=== PATIENT | female | born 1975 ===

== ENCOUNTER 2022-02-10 02:49 | Inpatient (IN) | payer OTHER ==
[2022-02-10 04:14] LABS: Basophils # (Auto) 0.1 K/mm3 (0.0-0.1); Basophils % (Auto) 0.4 % (0.0-1.8); Eosinophils # (Auto) 0.3 K/mm3 (0.0-0.4); Eosinophils % (Auto) 2.3 % (0.0-4.3); Hematocrit 38.8 % (30.3-42.9); Hemoglobin 12.9 gm/dl (10.1-14.3); Lymphocytes # (Auto) 2.9 K/mm3 (1.2-5.4); Lymphocytes % (Auto) 22.7 % (13.4-35.0); Mean Corpuscular HGB Conc 33 % (30-34); Mean Corpuscular Volume 92 fl (79-97); Monocytes # (Auto) 0.9 K/mm3 (0.0-0.8); Monocytes % (Auto) 7.4 % (0.0-7.3); Platelet Count 243 K/mm3 (140-440); Red Blood Count 4.24 M/mm3 (3.65-5.03); Red Cell Distribution Width 13.5 % (13.2-15.2)
[2022-02-10 04:25] LABS: Alanine Aminotransferase 13 units/L (7-56); Albumin 3.9 g/dL (3.9-5); Blood Urea Nitrogen 10 mg/dL (7-17); Calcium 9.2 mg/dL (8.4-10.2); Hemolysis Index 6
[2022-02-10 04:27] LABS: BUN/Creatinine Ratio 20
[2022-02-10] MEDS ORDERED: SODIUM CHLORIDE 0.9% 1000 ML 1,000 ML IV ONE (04:54)
[2022-02-10] MEDS ORDERED: ONDANSETRON 4 MG/2 ML INJ IV ONE ×2 (04:54→06:57)
[2022-02-10] MEDS ORDERED: MORPHINE 4 MG/1 ML INJ IV ONE ×3 (04:54→06:57)
--- NOTE | 2022-02-10 05:59 | Ultrasound Report ---
ULTRASOUND ABDOMEN, LIMITED INDICATION / CLINICAL INFORMATION: pain. COMPARISON: CTA chest 12/30/2020 TECHNIQUE: Using transcutaneous protocol multiple grayscale and color Doppler images were captured an d stored of the pancreas, liver, aorta, inferior vena cava, gallbladder, common bile duct, and right kidney. FINDINGS: PANCREAS: Visualized portion shows no significant abnormality. AORTA: Longitudinal images of the aorta demonstrate no significant abnormality. IVC: Longitudinal images of the inferior vena cava demonstrate no significant abnormality. LIVER: Right hepatic lobe measures 18.1 cm as measured. Diffuse increase in hepatic echotexture is pr esent. Normal hepatopedal blood flow in the main portal vein. GALLBLADDER: Gallbladder wall is normal measuring 2.2 mm. No stones. No pericholecystic fluid. BILE DUCTS: No significant abnormality. Common bile duct measures 3.3 mm. RIGHT KIDNEY: No acute findings are suggested to involve the right kidney. FREE FLUID: None. ADDITIONAL FINDINGS: None. IMPRESSION: 1. Mild hepatomegaly with hyperechoic appearance of the liver compatible with hepatic steatosis. Signer Name: Tao Hawthorne II, MD Signed: 02/10/2022 5:54 AM Workstation Name: [id number]
--- NOTE | 2022-02-10 06:34 | Cat Scan Report ---
CT ABDOMEN AND PELVIS WITH CONTRAST INDICATION / CLINICAL INFORMATION: Abdominal Pain. TECHNIQUE: Axial CT images were obtained through the abdomen and pelvis after 100 cc Omnipaque [address] scans at this location are performed using CT dose reduction for ALARA by means of automated exposure control. COMPARISON: CTA chest 12/30/2020 FINDINGS: LOWER CHEST: No significant abnormality of the imaged chest. LIVER: No focal lesion. No acute findings. GALLBLADDER / BILE DUCTS: No significant abnormality. Biliary ducts grossly unremarkable. SPLEEN: No significant abnormality. PANCREAS: Pancreas is abnormal in appearance with an expansile appearance of the pancreatic head and mixed regions of hypoattenuation versus diminished enhancement involving the mid body and head. Pancr eatic duct not well visualized. No pancreatic atrophy. Mild peripancreatic fat stranding within the p ancreaticoduodenal groove. ADRENALS: No significant abnormality. KIDNEYS/URETERS: No stones or hydronephrosis. No solid renal lesion. STOMACH / DUODENUM / SMALL BOWEL: The stomach, duodenum, and small bowel demonstrate no significant a bnormality. No specific abnormality of the mesentery demonstrated. COLON: No significant abnormality. APPENDIX: No significant abnormality. PERITONEUM: No free air or free fluid are present within the abdomen or pelvis. LYMPH NODES: Peripancreatic lymph nodes measure 7-8 mm in short axis. AORTA / ARTERIES: No evidence of vascular encasement. IVC / VEINS: No significant abnormality. URINARY BLADDER: No significant abnormality. REPRODUCTIVE ORGANS: No significant abnormality. SKELETAL SYSTEM: No significant abnormality. ADDITIONAL ABDOMINAL/PELVIC FINDINGS: None. IMPRESSION: 1. Acute pancreatitis is suggested, regions of diminished enhancement could reflect developing necros is, small hypoattenuating mass within the pancreatic head not entirely excluded. Correlation with ser um lipase recommended. 2. Borderline peripancreatic lymph nodes. Signer Name: Tao Hawthorne II, MD Signed: 02/10/2022 6:30 AM Workstation Name: [id number]
--- NOTE | 2022-02-10 07:09 | Event Note ---
Date: 02/10/22 Pt seen/evaluated by ER attending, Dr. Shanks. The pt was signed out to me on today, 02/10/22, at 06:28am pending result of the pt's CT scan of a/p. Please see pt's EHR for Dr. Shanks's direct provider note on the pt and his assessment of her. Labs reviewed. WBC 12.6. Remainder of labs are grossly unremarkable. He ordered a ultrasound of the patient's gallbladder which was negative. CT scan reviewed and results per reading radiologist demonstrates acute pancreatitis with regions of diminished enhancement which could reflect a developing necrosis. Borderline perihepatic lymph nodes. I reassessed the patient. She continues to have pain and reports nausea. She will be ordered for additional antiemetics and pain medication. Case reviewed via telephone with admitting hospitalist, Dr. Buchanan at 7:11 AM. Patient's care has been transferred to him for admission to the hospital service
[2022-02-10] MEDS ORDERED: HYDROmorphone 0.5 MG/0.5 ML INJ IV PRN (12:11)
[2022-02-10] MEDS ORDERED: MORPHINE 2 MG/1 ML INJ IV PRN (12:30)
[2022-02-10] MEDS: HYDROmorphone 1 MG/1 ML INJ IV PRN ×3 (12:43→20:01)
[2022-02-10] MEDS ORDERED: ONDANSETRON 4 MG/2 ML INJ IV PRN (13:00)
[2022-02-10] MEDS: HEPARIN 5,000 UNIT/1 ML VIAL SUB-Q SCH ×2 (13:22→22:49)
--- NOTE | 2022-02-10 13:53 | Electrocardiograph Report ---
[facility] Test Date: 2022-02-10 Test Time: 06:30:50 Pat Name: ABELARDO RUIZ Department: Room: A386 Gender: F Manager Paper: RIK : 1975 Requested By: DEBBIE SIERRA Order Number: [id number] Reading MD: Nori Kauffman Measurements Intervals Stanton Rate: 79 P: 42 NJ: 205 QRS: -12 QRSD: 81 T: 11 QT: 388 QTc: 444 Interpretive Statements Sinus rhythm Borderline prolonged NJ interval Left ventricular hypertrophy Compared to ECG 12/30/2020 00:14:02 No significant change Electronically Signed On 02-10-2022 13:52:50 EDT by Nori Kauffman
[2022-02-10] MEDS: FAMOTIDINE 20 MG/2 ML INJ IV SCH ×2 (14:27→22:49)
[2022-02-10] MEDS: D5W/0.9% NACL 1,000 ML IV SCH (16:48)
--- NOTE | 2022-02-10 21:42 | Emergency Department Report ---
ED General Adult HPI - General Chief complaint: Abdominal Pain Stated complaint: STOMACH/BACK PAIN PUI?: No Time Seen by Provider: 02/10/22 04:54 Source: patient Mode of arrival: Ambulatory Limitations: No Limitations - History of Present Illness Initial comments: GENERALIZED ABD PAIN AND BACK PAIN SINCE FATHERS DAY. DENIES N/V/D, -: Gradual, days(s) Location: abdomen Radiation: abdomen Severity scale (0 -10): 8 Quality: aching Consistency: constant Improves with: none Associated Symptoms: nausea/vomiting - Related Data Previous Rx's Medication Instructions Recorded Last Taken Type Albuterol Mdi (or & Nicu Only) 2 puff IH QID PRN #8.5 gram 01/01/21 Unknown Rx [ProAir HFA Inhaler] Apixaban [Eliquis] 5 mg PO Q12HR #60 tablet 01/01/21 Unknown Rx Ascorbic Acid [Vitamin C] 500 mg PO BID #10 tablet 01/01/21 Unknown Rx Metoprolol [Lopressor TAB] 25 mg PO BID #60 tablet 01/01/21 Unknown Rx Pantoprazole [Protonix TAB] 40 mg PO QDAC #30 tablet 01/01/21 Unknown Rx Zinc Sulfate 220 mg PO BID #10 capsule 01/01/21 Unknown Rx amLODIPine 10 mg PO DAILY #30 tablet 01/01/21 Unknown Rx guaiFENesin ER [Mucinex ER] 600 mg PO BID #10 tablet 01/01/21 Unknown Rx levoFLOXacin [Levaquin] 750 mg PO QDAY #2 tablet 01/02/21 Unknown Rx Allergies Allergy/AdvReac Type Severity Reaction Status Date / Time No Known Allergies Allergy Verified 10/15/21 09:21 ED Review of Systems ROS: Stated complaint: STOMACH/BACK PAIN Other details as noted in HPI Constitutional: denies: chills, fever Eyes: denies: eye pain, eye discharge, vision change ENT: denies: ear pain, throat pain Respiratory: denies: cough, shortness of breath, wheezing Cardiovascular: denies: chest pain, palpitations Endocrine: no symptoms reported Gastrointestinal: denies: abdominal pain, nausea, diarrhea Genitourinary: denies: urgency, dysuria, discharge Musculoskeletal: denies: back pain, joint swelling, arthralgia Skin: denies: rash, lesions Neurological: denies: headache, weakness, paresthesias Psychiatric: denies: anxiety, depression Hematological/Lymphatic: denies: easy bleeding, easy bruising ED Past Medical Hx - Past Medical History Hx Congestive Heart Failure: No Hx Diabetes: No Hx Asthma: Yes Hx COPD: No - Social History Smoking Status: Never Smoker - Medications Home Medications: Home Medications Medication Instructions Recorded Confirmed Last Taken Type Albuterol Mdi (or & Nicu Only) 2 puff IH QID PRN #8.5 gram 01/01/21 Unknown Rx [ProAir HFA Inhaler] Apixaban [Eliquis] 5 mg PO Q12HR #60 tablet 01/01/21 Unknown Rx Ascorbic Acid [Vitamin C] 500 mg PO BID #10 tablet 01/01/21 Unknown Rx Metoprolol [Lopressor TAB] 25 mg PO BID #60 tablet 01/01/21 Unknown Rx Pantoprazole [Protonix TAB] 40 mg PO QDAC #30 tablet 01/01/21 Unknown Rx Zinc Sulfate 220 mg PO BID #10 capsule 01/01/21 Unknown Rx amLODIPine 10 mg PO DAILY #30 tablet 01/01/21 Unknown Rx guaiFENesin ER [Mucinex ER] 600 mg PO BID #10 tablet 01/01/21 Unknown Rx levoFLOXacin [Levaquin] 750 mg PO QDAY #2 tablet 01/02/21 Unknown Rx ED Physical Exam - General Limitations: No Limitations General appearance: alert, in distress - Head Head exam: Present: atraumatic, normocephalic - Eye Eye exam: Present: normal appearance - ENT ENT exam: Present: mucous membranes moist - Neck Neck exam: Present: normal inspection - Respiratory Respiratory exam: Present: normal lung sounds bilaterally. Absent: respiratory distress - Cardiovascular Cardiovascular Exam: Present: regular rate, normal rhythm. Absent: systolic murmur, diastolic murmur, rubs, gallop - GI/Abdominal GI/Abdominal exam: Present: tenderness, rebound - Extremities Exam Extremities exam: Present: normal inspection - Back Exam Back exam: Present: normal inspection - Neurological Exam Neurological exam: Present: alert, oriented X3 - Psychiatric Psychiatric exam: Present: normal affect, normal mood - Skin Skin exam: Present: warm, dry, intact, normal color. Absent: rash ED Course Vital Signs 02/10/22 02/10/22 02/10/22 03:11 05:23 05:24 Temperature 98.3 F 98.0 F Pulse Rate 80 80 Respiratory 18 14 Rate Blood Pressure 148/98 Blood Pressure 178/80 [Right] O2 Sat by Pulse 98 98 98 Oximetry ED Medical Decision Making - Lab Data Result diagrams: 02/10/22 03:46 02/10/22 03:46 - EKG Data -: EKG Interpreted by Me EKG shows normal: sinus rhythm - EKG Data Interpretation: no acute changes, nonspecific ST-T wave isaias - Medical Decision Making work up showed elevated wbc , pain meds given and US negative CT scan ordered handed over to dr Harrison at [facility] for follow up on CT and disposition Critical care attestation.: If time is entered above; I have spent that time in minutes in the direct care of this critically ill patient, excluding procedure time. ED Disposition Clinical Impression: Acute pancreatitis, Acute abdominal pain Disposition: ADMITTED INPATIENT Is pt being admited?: Yes Does the pt Need Aspirin: No Condition: Fair
[2022-02-10] MEDS: ACETAMINOPHEN 325 MG TAB PO PRN (22:51)
--- NOTE | 2022-02-10 23:59 | History and Physical Report ---
History of Present Illness Date of examination: 02/10/22 Date of admission: 02/10/22 12:11 Chief complaint: Acute abdominal pain for 2 to 3 days History of present illness: 47-year-old -[place] female with history of hypertension obesity GERD and on anticoagulation for DVT comes in for increasing abdominal pain for the last 48 to 72 hours. Pain is epigastric region. Pain is intermittent in nature. Pain is sharp 8-10 on a scale of 1-10. Associated with nausea. Vomited couple times every day for the last 3 days. No fever or chills. Patient is vaccinated. Past History Past Medical History: hypertension, hyperlipidemia, other (DVT) Past Surgical History: Other Social history: lives with family, full code Family history: hypertension Medications and Allergies Allergies Allergy/AdvReac Type Severity Reaction Status Date / Time No Known Allergies Allergy Verified 10/15/21 09:21 Home Medications Medication Instructions Recorded Confirmed Last Taken Type Albuterol Mdi (or & Nicu Only) 2 puff IH QID PRN #8.5 gram 01/01/21 Unknown Rx [ProAir HFA Inhaler] Apixaban [Eliquis] 5 mg PO Q12HR #60 tablet 01/01/21 Unknown Rx Ascorbic Acid [Vitamin C] 500 mg PO BID #10 tablet 01/01/21 Unknown Rx Metoprolol [Lopressor TAB] 25 mg PO BID #60 tablet 01/01/21 Unknown Rx Pantoprazole [Protonix TAB] 40 mg PO QDAC #30 tablet 01/01/21 Unknown Rx Zinc Sulfate 220 mg PO BID #10 capsule 01/01/21 Unknown Rx amLODIPine 10 mg PO DAILY #30 tablet 01/01/21 Unknown Rx guaiFENesin ER [Mucinex ER] 600 mg PO BID #10 tablet 01/01/21 Unknown Rx levoFLOXacin [Levaquin] 750 mg PO QDAY #2 tablet 01/02/21 Unknown Rx Active Meds: Active Medications Acetaminophen (Acetaminophen 325 Mg Tab) 650 mg PO Q4H PRN PRN Reason: Pain MILD(1-3)/Fever >100.5/CASTANEDA Last Admin: 02/10/22 22:51 Dose: 650 mg Famotidine (Famotidine 20 Mg/2 Ml Inj) 20 mg IV BID ALTAF Last Admin: 02/10/22 22:49 Dose: 20 mg Heparin Sodium (Porcine) (Heparin 5,000 Unit/1 Ml Vial) 5,000 unit SUB-Q Q12HR [facility] Last Admin: 02/10/22 22:49 Dose: 5,000 unit Hydromorphone HCl (Hydromorphone 1 Mg/1 Ml Inj) 1 mg IV Q3H PRN PRN Reason: Pain , Severe (7-10) Last Admin: 02/10/22 20:01 Dose: 1 mg Dextrose/Sodium Chloride (D5ns) 1,000 mls @ 100 mls/hr IV DIRECT [facility] Last Admin: 02/10/22 16:48 Dose: 100 mls/hr Morphine Sulfate (Morphine 2 Mg/1 Ml Inj) 2 mg IV Q4H PRN PRN Reason: Pain, Moderate (4-6) Ondansetron HCl (Ondansetron 4 Mg/2 Ml Inj) 4 mg IV Q8H PRN PRN Reason: Nausea And Vomiting Last Admin: 02/10/22 19:44 Dose: 4 mg Sodium Chloride (Sodium Chloride 0.9% 10 Ml Flush Syringe) 10 ml IV BID [facility] Last Admin: 02/10/22 22:49 Dose: 10 ml Sodium Chloride (Sodium Chloride 0.9% 10 Ml Flush Syringe) 10 ml IV PRN PRN PRN Reason: LINE FLUSH Review of Systems All systems: negative Gastrointestinal: abdominal pain, nausea, vomiting Exam - Constitutional Vitals: Temp Pulse Resp BP Pulse Ox 98.7 F 88 18 165/90 97 02/10/22 20:00 02/10/22 20:00 02/10/22 16:58 02/10/22 20:00 02/10/22 16:58 General appearance: Present: no acute distress, well-nourished - EENT Eyes: Present: PERRL ENT: hearing intact, clear oral mucosa - Neck Neck: Present: supple, normal ROM - Respiratory Respiratory effort: normal Respiratory: bilateral: CTA - Cardiovascular Heart rate: 78 Rhythm: regular Heart Sounds: Present: S1 & S2. Absent: rub, click - Extremities Extremities: pulses symmetrical, No edema Peripheral Pulses: within normal limits - Abdominal General gastrointestinal: Present: soft, non-tender, non-distended, normal bowel sounds Localized gastrointestinal: tender: diffuse, guarding: diffuse, rebound: diffuse Female genitourinary: Present: normal - Integumentary Integumentary: Present: clear, warm, dry - Musculoskeletal Musculoskeletal: gait normal, strength equal bilaterally - Psychiatric Psychiatric: appropriate mood/affect, intact judgment & insight - Neurologic Neurologic: CNII-XII intact, moves all extremities - Allied Health Allied health notes reviewed: nursing, case management HEART Score - HEART Score Troponin: Troponin T < 0.010 ng/mL (0.00-0.029) 02/10/22 07:08 Results - Labs CBC & Chem 7: 02/10/22 03:46 02/10/22 03:46 Labs: Laboratory Last Values WBC 12.6 K/mm3 (4.5-11.0) H 02/10/22 03:46 RBC 4.24 M/mm3 (3.65-5.03) 02/10/22 03:46 Hgb 12.9 gm/dl (10.1-14.3) 02/10/22 03:46 Hct 38.8 % (30.3-42.9) 02/10/22 03:46 MCV 92 fl (79-97) 02/10/22 03:46 MCH 31 pg (28-32) 02/10/22 03:46 MCHC 33 % (30-34) 02/10/22 03:46 RDW 13.5 % (13.2-15.2) 02/10/22 03:46 Plt Count 243 K/mm3 (140-440) 02/10/22 03:46 Lymph % (Auto) 22.7 % (13.4-35.0) 02/10/22 03:46 Major % (Auto) 7.4 % (0.0-7.3) H 02/10/22 03:46 Eos % (Auto) 2.3 % (0.0-4.3) 02/10/22 03:46 Baso % (Auto) 0.4 % (0.0-1.8) 02/10/22 03:46 Lymph # (Auto) 2.9 K/mm3 (1.2-5.4) 02/10/22 03:46 Major # (Auto) 0.9 K/mm3 (0.0-0.8) H 02/10/22 03:46 Eos # (Auto) 0.3 K/mm3 (0.0-0.4) 02/10/22 03:46 Baso # (Auto) 0.1 K/mm3 (0.0-0.1) 02/10/22 03:46 Seg Neutrophils % 67.2 % (40.0-70.0) 02/10/22 03:46 Seg Neutrophils # 8.5 K/mm3 (1.8-7.7) H 02/10/22 03:46 Sodium 135 mmol/L (137-145) L 02/10/22 03:46 Potassium 3.9 mmol/L (3.6-5.0) 02/10/22 03:46 Chloride 100.5 mmol/L (98-107) 02/10/22 03:46 Carbon Dioxide 23 mmol/L (22-30) 02/10/22 03:46 Anion Gap 15 mmol/L 02/10/22 03:46 BUN 10 mg/dL (7-17) 02/10/22 03:46 Creatinine 0.5 mg/dL (0.6-1.2) L 02/10/22 03:46 Estimated GFR > 60 ml/min 02/10/22 03:46 BUN/Creatinine Ratio 20 % 02/10/22 03:46 Glucose 189 mg/dL (65-100) H 02/10/22 03:46 Calcium 9.2 mg/dL (8.4-10.2) 02/10/22 03:46 Total Bilirubin 0.20 mg/dL (0.1-1.2) 02/10/22 03:46 AST 11 units/L (5-40) 02/10/22 03:46 ALT 13 units/L (7-56) 02/10/22 03:46 Alkaline Phosphatase 122 units/L (35-129) 02/10/22 03:46 Troponin T < 0.010 ng/mL (0.00-0.029) 02/10/22 07:08 C-Reactive Protein 4.40 mg/dL (0.00-1.30) H 02/10/22 05:18 Total Protein 7.4 g/dL (6.3-8.2) 02/10/22 03:46 Albumin 3.9 g/dL (3.9-5) 02/10/22 03:46 Albumin/Globulin Ratio 1.1 % 02/10/22 03:46 Amylase 77 units/L (27-131) 02/10/22 05:18 Lipase 31 units/L (13-60) 02/10/22 05:18 HCG, Qual Negative (Negative) 02/10/22 05:18 - Imaging and Cardiology EKG: report reviewed (Sinus rhythm, LVH heart rate of 79/min) Imaging and Cardiology: Abdominal CAT scan acute pharyngitis is suggested lesions ultimately advancement could reflect developing necrosis. The mass within the pancreatic head not entirely excluded. Correlation with serum lipase is recommended Borderline peripancreatic lymph nodes Abdominal Mild hepatomegaly with hyperechoic appearance of the liver compatible with hepatic steatosis Assessment and Plan Advance Directives: Yes (Full code) VTE prophylaxis?: Chemical Plan of care discussed with patient/family: Yes - Patient Problems (1) Acute pancreatitis Current Visit: Yes Status: Acute Qualifiers: Pancreatitis type: biliary Plan to address problem: Keep patient n.p.o. IV fluids IV Zofran and IV Reglan Pain control Monitor lipase and amylase (2) Hypertension Current Visit: Yes Status: Chronic Qualifiers: Hypertension type: primary hypertension Qualified Code(s): I10 - Essential (primary) hypertension Plan to address problem: Patient is n.p.o. Initiated on Catapres patch (3) Asthma Current Visit: Yes Status: Chronic Qualifiers: Asthma severity: unspecified severity Plan to address problem: MDI inhalers versus nebulizer treatments as necessary (4) GERD (gastroesophageal reflux disease) Current Visit: Yes Status: Chronic Qualifiers: Esophagitis presence: without esophagitis Qualified Code(s): K21.9 - Gastro-esophageal reflux disease without esophagitis Plan to address problem: On IV Protonix (5) DVT prophylaxis Current Visit: No Status: Acute Plan to address problem: Patient Eliquis and GI prophylaxis
[2022-02-11] MEDS ORDERED: ALBUTEROL 8.5 GM MDI INHALATION IH PRN (00:20)
[2022-02-11] MEDS ORDERED: cloNIDine TTS 0.2 MG/24 HR PATCH TD SCH (01:00)
[2022-02-11] MEDS: D5W/0.9% NACL 1,000 ML IV SCH ×2 (02:15→15:31)
[2022-02-11] MEDS: HYDROmorphone 1 MG/1 ML INJ IV PRN ×4 (04:13→20:39)
[2022-02-11 05:55] LABS: Basophils % (Auto) 0.2 % (0.0-1.8); Eosinophils % (Auto) 0.2 % (0.0-4.3); Hematocrit 37.9 % (30.3-42.9); Hemoglobin 12.5 gm/dl (10.1-14.3); Lymphocytes # (Auto) 1.4 K/mm3 (1.2-5.4); Lymphocytes % (Auto) 8.8 % (13.4-35.0); Mean Corpuscular HGB Conc 33 % (30-34); Mean Corpuscular Volume 91 fl (79-97); Monocytes # (Auto) 1.2 K/mm3 (0.0-0.8); Platelet Count 242 K/mm3 (140-440); Red Blood Count 4.16 M/mm3 (3.65-5.03); Red Cell Distribution Width 13.8 % (13.2-15.2)
[2022-02-11 07:45] LABS: Alanine Aminotransferase 11 units/L (7-56); Albumin 3.5 g/dL (3.9-5); Blood Urea Nitrogen 3 mg/dL (7-17); Calcium 8.8 mg/dL (8.4-10.2); Hemolysis Index 0
[2022-02-11 07:47] LABS: BUN/Creatinine Ratio 10
[2022-02-11] MEDS: FAMOTIDINE 20 MG/2 ML INJ IV SCH ×2 (09:33→21:44)
[2022-02-11] MEDS: HEPARIN 5,000 UNIT/1 ML VIAL SUB-Q SCH ×2 (09:33→21:44)
[2022-02-11] MEDS: hydrALAZINE 20 MG/1 ML INJ IV PRN ×2 (10:23→21:44)
[2022-02-11] MEDS: ACETAMINOPHEN 325 MG TAB PO PRN (14:17)
[2022-02-11 20:36] LABS: Bilirubin,Urine NEG (Negative); Blood,Urine SM (Negative); Color,Urine Yellow (Yellow); Protein,Urine <15 mg/dL mg/dL (Negative); Urobilinogen,Urine < 2.0 mg/dL (<2.0)
[2022-02-11 20:38] LABS: Mucus,Urine FEW /HPF
[2022-02-12] MEDS: D5W/0.9% NACL 1,000 ML IV SCH ×2 (00:16→15:05)
[2022-02-12] MEDS: HYDROmorphone 1 MG/1 ML INJ IV PRN ×5 (00:20→18:10)
--- NOTE | 2022-02-12 01:59 | Progress Note ---
Assessment and Plan - Patient Problems (1) Acute pancreatitis Current Visit: Yes Status: Acute Qualifiers: Pancreatitis type: biliary Plan to address problem: Keep patient n.p.o. IV fluids IV Zofran and IV Reglan Pain control Monitor lipase and amylase Lipase and amylase are normal Tolerating clears (2) Hypertension Current Visit: Yes Status: Chronic Qualifiers: Hypertension type: primary hypertension Qualified Code(s): I10 - Essential (primary) hypertension Plan to address problem: Patient is n.p.o. Initiated on Catapres patch (3) Asthma Current Visit: Yes Status: Chronic Qualifiers: Asthma severity: unspecified severity Plan to address problem: MDI inhalers versus nebulizer treatments as necessary (4) GERD (gastroesophageal reflux disease) Current Visit: Yes Status: Chronic Qualifiers: Esophagitis presence: without esophagitis Qualified Code(s): K21.9 - Gastro-esophageal reflux disease without esophagitis Plan to address problem: On IV Protonix (5) DVT prophylaxis Current Visit: No Status: Acute Plan to address problem: Patient Eliquis and GI prophylaxis Subjective Date of service: 02/11/22 Principal diagnosis: Acute pancreatitis Interval history: 47-year-old -[place]ian female with history of hypertension obesity GERD and on anticoagulation for DVT comes in for increasing abdominal pain for the last 48 to 72 hours. Pain is epigastric region. Pain is intermittent in nature. Pain is sharp 8-10 on a scale of 1-10. Associated with nausea. Vomited couple times every day for the last 3 days. No fever or chills. Patient is vaccinated. 02/11/2022 Abdominal pain better Nauseous but no vomiting Objective - Constitutional Vitals: Vital Signs - 12hr 02/11/22 02/11/22 02/11/22 14:00 14:17 14:47 Temperature Pulse Rate Respiratory 20 18 18 Rate Blood Pressure O2 Sat by Pulse 99 Oximetry 02/11/22 02/11/22 02/11/22 16:30 20:38 20:42 Temperature 99.0 F 98.9 F Pulse Rate 88 89 Respiratory 22 18 Rate Blood Pressure 177/81 169/67 O2 Sat by Pulse 97 100 100 Oximetry 02/11/22 02/12/22 02/12/22 21:40 00:13 00:14 Temperature 99.9 F H Pulse Rate 83 89 Respiratory 18 18 Rate Blood Pressure 177/85 177/82 O2 Sat by Pulse 100 99 Oximetry General appearance: Present: no acute distress, well-nourished - EENT Eyes: PERRL, EOM intact ENT: hearing intact, clear oral mucosa Ears: bilateral: normal - Neck Neck: supple, normal ROM - Respiratory Respiratory effort: normal Respiratory: bilateral: CTA - Breasts Breasts: normal - Cardiovascular Heart rate: 78 Rhythm: regular Heart Sounds: Present: S1 & S2. Absent: gallop, rub Extremities: pulses intact, No edema, normal color, Full ROM - Gastrointestinal General gastrointestinal: Present: soft, tender, non-distended, normal bowel sounds Localized gastrointestinal: tender: diffuse (No guarding) - Genitourinary Female genitourinary: normal - Integumentary Integumentary: clear, warm, dry - Musculoskeletal Musculoskeletal: 1, strength equal bilaterally - Neurologic Neurologic: moves all extremities - Psychiatric Psychiatric: memory intact, appropriate mood/affect, intact judgment & insight - Labs CBC & Chem 7: 02/11/22 05:18 02/11/22 05:18 Labs: Abnormal lab results 02/11/22 02/11/22 Range/Units 05:18 05:18 WBC 15.3 H (4.5-11.0) K/mm3 Lymph % (Auto) 8.8 L (13.4-35.0) % Winston % (Auto) 8.0 H (0.0-7.3) % Winston # (Auto) 1.2 H (0.0-0.8) K/mm3 Seg Neutrophils % 82.8 H (40.0-70.0) % Seg Neutrophils # 12.7 H (1.8-7.7) K/mm3 Sodium 134 L (137-145) mmol/L BUN 3 L (7-17) mg/dL Creatinine 0.3 L (0.6-1.2) mg/dL Glucose 164 H (65-100) mg/dL Albumin 3.5 L (3.9-5) g/dL HEART Score - HEART Score Troponin: Troponin T < 0.010 ng/mL (0.00-0.029) 02/10/22 07:08
[2022-02-12] MEDS: FAMOTIDINE 20 MG/2 ML INJ IV SCH ×2 (08:18→09:25)
[2022-02-12] MEDS: HEPARIN 5,000 UNIT/1 ML VIAL SUB-Q SCH (09:24)
--- NOTE | 2022-02-12 16:12 | Discharge Summary ---
Providers - Providers Date of Admission: 02/10/22 12:11 Date of discharge: 02/12/22 Attending physician: MARIO MARINELLI Primary care physician: HENRI TODD Hospitalization Condition: Fair Hospital course: Subjective Date of service: 02/12/22 Principal diagnosis: Acute pancreatitis Interval history: 47-year-old -Turkish female with history of hypertension obesity GERD and on anticoagulation for DVT comes in for increasing abdominal pain for the last 48 to 72 hours. Pain is epigastric region. Pain is intermittent in nature. Pain is sharp 8-10 on a scale of 1-10. Associated with nausea. Vomited couple times every day for the last 3 days. No fever or chills. Alice ent is vaccinated. 02/11/2022 Abdominal pain better Nauseous but no vomiting 02/12/22 Symptomatically better Discharge today Assessment and Plan - Patient Problems (1) Acute pancreatitis Current Visit: Yes Status: Acute Qualifiers: Pancreatitis type: biliary Plan to address problem: Keep patient n.p.o. Abdominal pain better Clear liquids Advance diet as tolerated Discharge today (2) Hypertension Current Visit: Yes Status: Chronic Qualifiers: Hypertension type: primary hypertension Qualified Code(s): I10 - Essential (primary) hypertension Plan to address problem: Initiated patient back on oral antihypertensives (3) Asthma Current Visit: Yes Status: Chronic Qualifiers: Asthma severity: unspecified severity Plan to address problem: MDI inhalers versus nebulizer treatments as necessary (4) GERD (gastroesophageal reflux disease) Current Visit: Yes Status: Chronic Qualifiers: Esophagitis presence: without esophagitis Qualified Code(s): K21.9 - Gastro-esophageal reflux disease without esophagitis Plan to address problem: On IV Protonix (5) DVT prophylaxis Current Visit: No Status: Acute Plan to address problem: Patient Eliquis and GI prophylaxis Disposition: HOME / SELF CARE / HOMELESS Final Discharge Diagnosis (Prints w/discharge instructions): Acute pancreatitis. Hypertension. GERD. Asthma/COPD Time spent for discharge: 35 minutes - Discharge Diagnoses (1) Acute pancreatitis Status: Acute Qualifiers: Pancreatitis type: biliary (2) Hypertension Status: Chronic Qualifiers: Hypertension type: primary hypertension Qualified Code(s): I10 - Essential (primary) hypertension (3) Asthma Status: Chronic Qualifiers: Asthma severity: unspecified severity (4) GERD (gastroesophageal reflux disease) Status: Chronic Qualifiers: Esophagitis presence: without esophagitis Qualified Code(s): K21.9 - Gastro-esophageal reflux disease without esophagitis (5) DVT prophylaxis Status: Acute Core Measure Documentation - Palliative Care Palliative Care/ Comfort Measures: Not Applicable - Core Measures Any of the following diagnoses?: none Exam - Constitutional Vitals: Temp Pulse Resp BP Pulse Ox 97.7 F 92 H 22 156/76 97 02/12/22 11:37 02/12/22 11:37 02/12/22 11:37 02/12/22 11:37 02/12/22 11:37 General appearance: Present: no acute distress, well-nourished - EENT Eyes: Present: PERRL ENT: hearing intact, clear oral mucosa - Neck Neck: Present: supple, normal ROM - Respiratory Respiratory effort: normal Respiratory: bilateral: CTA - Cardiovascular Heart rate: 72 Rhythm: regular Heart Sounds: Present: S1 & S2. Absent: rub, click - Extremities Extremities: no ischemia, pulses intact, pulses symmetrical, No edema Peripheral Pulses: within normal limits - Abdominal General gastrointestinal: Present: soft, non-tender, non-distended, normal bowel sounds Female genitourinary: Present: normal - Rectal Rectal Exam: deferred - Integumentary Integumentary: Present: clear, warm, dry - Musculoskeletal Musculoskeletal: gait normal, strength equal bilaterally - Psychiatric Psychiatric: appropriate mood/affect, intact judgment & insight - Neurologic Neurologic: CNII-XII intact, moves all extremities - Allied Health Allied health notes reviewed: nursing, case management Plan Activity: no restrictions, advance as tolerated Follow up with: CRISTIAN ANGEL MD [Staff Physician] - 7 Days
[2022-02-12] MEDS: hydrALAZINE 20 MG/1 ML INJ IV PRN (17:25)
[2022-02-12 18:16] VITALS: BP 156/70
== END 2022-02-12 21:00 | disposition home or self-care (01) | DRG 439 ==
LOC: ED 02:49 → 3A 12:11
PROVIDERS: ADMIT Internal Medicine; ATTEND Internal Medicine
DX: K85.90 Acute pancreatitis without necrosis or infection, unspecified (principal); Z68.43 Body mass index [BMI] 50.0-59.9, adult; I10 Essential (primary) hypertension; K21.9 Gastro-esophageal reflux disease without esophagitis; E78.5 Hyperlipidemia, unspecified; J44.9 Chronic obstructive pulmonary disease, unspecified; Z82.49 Family history of ischemic heart disease and other diseases of the circulatory system; E66.9 Obesity, unspecified
CPT/HCPCS: 36415; 74177; 76705; 80053; 81001; 82150; 83690; 84484; 84703; 85025; 86140; 93005; G0378; J3490; J0360; J1170; J1644; J2270; J2405; J7030; J7042; Q9967